=== PATIENT | female | born 1970 | race Asian ===

== ENCOUNTER 2020-07-27 11:23 | Emergency (ER) | payer BC ==
[~2020-07-27] VITALS: Ht 149.9 cm; Wt 61.2 kg
[2020-07-27 11:25] VITALS: BP 122/64
--- NOTE | 2020-07-27 11:48 | NUR ---
Patient discharged to home in stable condition. Written and verbal after care instructions given. Patient verbalizes understanding of instruction.
--- NOTE | 2020-07-27 11:49 | NUR ---
covid swab obtained and send to lab .
== END 2020-07-27 11:49 | disposition home or self-care (01) ==
LOC: ER 11:26
DX: Z20.828 Contact with and (suspected) exposure to other viral communicable diseases (principal)
CPT/HCPCS: 87426; 99283; C9803; U0003